=== PATIENT | male | born 1960 | race Caucasian/White ===

== ENCOUNTER 2022-09-15 08:35 | Emergency (ER) | payer BC ==
--- OUTSIDE RECORDS SUMMARY | 2022-09-15 08:39 | XMS REPORT | Continuity of Care Document ---
:1960 Author Organization [facility] t Address [address] [facility] [address] [place] [address] Care Team Providers Name Role Phone Taras Aguillon Attending Clinician Unavailable Dennys Rojas Attending Clinician Unavailable UNKNOWN Attending Clinician Unavailable Taras Aguillon Admitting Clinician Unavailable Dennys Rojas Admitting Clinician Unavailable KNOW, DOES_NOT Admitting Clinician Unavailable Payers Payer Name Policy Type Policy Number Effective Date Expiration Date S ource Problems This patient has no known problems. Allergies, Adverse Reactions, Alerts Allergy Allergy Status Severity Reaction(s) Onset Inactive Treating Comm ents Source Name Type Date Date Clinician No Known DA Active U 2019-0 [facility] 11[facility] [place] [facility] 00 are [facility] No Known DA Active U 0 [facility] 11-25 [place] [facility] 00:[facility]: [facility] 00 are [facility] No Known DA Active U [facility]- [place] Allergie 00:00: d [address] [facility] No Known DA Active U [facility] [place] Allergie 00:00: d [facility] Medications This patient has no known medications. Procedures This patient has no known procedures. Encounters Start End Encounter Admission Attending Care Care Encounter Source Date/Time Date/Time Type Type Clinicians Facility Department ID 2020-08-12 [id number] 11:09:[address] [facility] 2019-11-29 Inpatient Esses, [facility] DAYS [id number] [facility] 08:45:[address] [facility] 2021-02-11 2021-02-12 Inpatient MOLLY Menchaca TERRELL [id number] [facility] 07:30:00 13:23:00 Dennys pelaez [facility] 2020-08-12 2020-08-12 Outpatient Esses, [facility]AN[facility] REF [id number] [facility] 13:36:00 13:36:00 Taras 75 [facility] are [facility] 2019-11-26 2019-11-26 Outpatient UNKNOWN [facility] LABO [id number] [facility] 15:16:00 15:16:00 99 [facility] 2019-11-26 2019-11-26 Outpatient UNKNOWN [facility] LABO [id number] [facility] 15:16:00 15:16:00 99 [facility] 2019-11-26 2019-11-26 Outpatient Esses, HCANW REF [id number] [facility] 15:14:00 15:14:00 Taras 57 [facility] are [facility] Results Test Description Test Time Test Comments Results Result [facility] e Comments - FLUORO GUID CTRL 2021-02-12 [facility]:29[facility] 1960 Sex: M Name: WILLIAM CARR [facility] : 1960 Age/S: 61 / M [address] [address] Unit #: [id number] Loc: [place] [address] Phys: Dennys Rojas III, MD Acct: [id number] Dis Date: Status: ADM IN PHONE #: [phone] Exam Date: 02/11/2021 1438 FAX #: Reason: ANKLR ORIF EXAMS: CPT: [id number] FLUORO GUID CTRL ACC DEV 82087 Fluoro Time: DAP (Gy m2): Air Kerma (mGy): EXAM: - FLUORO GUID CTRL ACC DEV HISTORY: Ankle ORIF Location code:C3 COMPARISON: None available time of interpretation. FINDINGS: Intraoperative fluoroscopy was provided for tibiotalar arthroplasty. Radiologist was not present for the procedure. 29 fluoroscopy images were obtained. Please see surgical report. IMPRESSION: 1. As above. Fluoroscopy time: 109 seconds Cumulative dose: 5.39 mGy at 0729 Reported and signed by: Bandar Mcintyre MD CC: Dennys Rojas III, MD PAGE 1 Signed Report Name: WILLIAM CARR [facility] : 1960 Age/S: 61 / M [address] [facility] [place] Unit #: [id number] Loc: [place] [address] Phys: Dennys Rojas III, MD Acct: [id number] Dis Date: Status: ADM IN PHONE #: [phone] Exam Date: 02/11/2021 1438 FAX #: Reason: ANKLR ORIF EXAMS: CPT: [id number] FLUORO GUID CTRL ACC DEV 53232 Fluoro Time: DAP (Gy m2): Air Kerma (mGy): <Continued> Technologist: Neva Mancini RT(R)(CT) Trnscb Date/Time: 02/12/2021 (0729) [email or web address] Orig Print D/T: S: 02/12/2021 (0733) PAGE 2 Signed Report CBC W/AUTO DIFF 2021-02-12 05:42:00 Test Item Value Reference Range Interpretation Comme nts WHITE BLOOD CELL (test code = WBC) 7.5 K/mm3 3.5-11.0 N RED BLOOD CELL (test code = RBC) 3.43 M/mm3 4.70-6.10 L HEMOGLOBIN (test code = HGB) 10.7 G/DL 12.3-15.9 L HEMATOCRIT (test code = HCT) 34.0 % 35.8-46.7 L MEAN CELL VOLUME (test code = MCV) 99.1 Fl 86.3-98.9 H MEAN CELL HGB (test code = MCH) 31.2 pg 28.9-34.4 N MEAN CELL HGB CONCETRATION (test code = MCHC) 31.5 G/DL 32.1-34. 5 L RED CELL DISTRIBUTION WIDTH (test code = RDW) 17.1 SD 11.5-14. 5 H PLATELET COUNT (test code = PLT) 306 K/mm3 150-450 N MEAN PLATELET VOLUME (test code = MPV) 9.60 fL 7.0-9.6 N NEUTROPHIL % (test code = NT%) 65.7 % 40-76 N IMMATURE GRANULOCYTE % (test code = IG%) 0.1 % 0.0-5.0 N LYMPHOCYTE % (test code = LY%) 17.7 % 20.5-51.1 L MONOCYTE % (test code = MO%) 16.3 % 1.7-9.3 H EOSINOPHIL % (test code = EO%) 0.1 % 0.0-6.0 N BASOPHIL % (test code = BA%) 0.1 % 0.0-2.0 N NUCLEATED RBC % (test code = NRBC%) 0.0 /100WBC% 0.0-1.0 N NEUTROPHIL # (test code = NT#) 4.9 K/mm3 1.8-7.6 N IMMATURE GRANULOCYTE # (test code = IG#) 0.01 x10 3/uL 0.00-0.03 N LYMPHOCYTE # (test code = LY#) 1.3 K/mm3 0.6-3.0 N MONOCYTE # (test code = MO#) 1.2 K/mm3 0.2-1.5 N EOSINOPHIL # (test code = EO#) 0.0 K/mm3 0.0-0.4 N BASOPHIL # (test code = BA#) 0.0 K/mm3 0.0-0.2 N NUCLEATED RBC # (test code = NRBC#) 0.0 K/mm3 0.00-0.01 N MANUAL DIFF REQUIRED (test code = MDIFF) NO DIFF/SCN CRITERIA BASIC METABOLIC [id number] 11:49:00 Test Item Value Reference Range Interpretation Comments SODIUM (test code = NA) 135 mmol/L 134-147 N POTASSIUM (test code = 4.1 mmol/L 3.4-5.0 N K) CHLORIDE (test code = 103 mmol/L 100-108 N CL) CARBON DIOXIDE (test 28 mmol/L 21-32 N code = CO2) ANION GAP (test code = 4.0 GAP calc 4.0-15.0 N GAP) GLUCOSE (test code = 122 MG/DL 70-110 H GLU) BLOOD UREA NITROGEN 12 MG/DL 7-18 N (test code = BUN) GLOMERULAR FILTRATION >=60 max estimate >60 RATE (test code = GFR) estGFR CREATININE (test code = 0.8 MG/DL 0.8-1.3 N CREAT) CALCIUM (test code = CA) 9.7 MG/DL 8.5-10.1 N COVID 19 INHOUSE [id number] 11:47:00 Test Item Value Reference Range Interpretation Comments COVID 19 INHOUSE AG NEGATIVE Negative Per manu facturer, (test code = negative result s should [id number]) be treated aspr esumptive and, if inconsi stent with clinical signs andsymptoms or necessary for patient man agement, should betested with an alternative mol ecular assay. Negative resultsdo not preclude SA RS-CoV-2 infection and s hould not be usedas the s ole basis for patient man agement decisions. Nega tive results should be considered in t he context of apatient's r ecent exposures, hist ory, presence of cli nicalsigns and symptoms co nsistent with COVID-19. CBC W/AUTO [id number] 11:32:00 Test Item Value Reference Range Interpretation Comments WHITE BLOOD CELL (test code = 5.4 K/mm3 3.5-11.0 N WBC) RED BLOOD CELL (test code = 3.98 M/mm3 4.70-6.10 L RBC) HEMOGLOBIN (test code = HGB) 12.7 G/DL 12.3-15.9 N HEMATOCRIT (test code = HCT) 39.2 % 35.8-46.7 N MEAN CELL VOLUME (test code = 98.5 Fl 86.3-98.9 N MCV) MEAN CELL HGB (test code = MCH) 31.9 pg 28.9-34.4 N MEAN CELL HGB CONCETRATION 32.4 G/DL 32.1-34.5 N (test code = MCHC) RED CELL DISTRIBUTION WIDTH 16.6 SD 11.5-14.5 H (test code = RDW) PLATELET COUNT (test code = 349 K/mm3 150-450 N PLT) MEAN PLATELET VOLUME (test code 9.60 fL 7.0-9.6 N = MPV) NEUTROPHIL % (test code = NT%) 64.4 % 40-76 N IMMATURE GRANULOCYTE % (test 0.2 % 0.0-5.0 N code = IG%) LYMPHOCYTE % (test code = LY%) 19.7 % 20.5-51.1 L MONOCYTE % (test code = MO%) 12.5 % 1.7-9.3 H EOSINOPHIL % (test code = EO%) 2.6 % 0.0-6.0 N BASOPHIL % (test code = BA%) 0.6 % 0.0-2.0 N NUCLEATED RBC % (test code = 0.0 /100WBC% 0.0-1.0 N NRBC%) NEUTROPHIL # (test code = NT#) 3.5 K/mm3 1.8-7.6 N IMMATURE GRANULOCYTE # (test 0.01 x10 3/uL 0.00-0.03 N code = IG#) LYMPHOCYTE # (test code = LY#) 1.1 K/mm3 0.6-3.0 N MONOCYTE # (test code = MO#) 0.7 K/mm3 0.2-1.5 N EOSINOPHIL # (test code = EO#) 0.1 K/mm3 0.0-0.4 N BASOPHIL # (test code = BA#) 0.0 K/mm3 0.0-0.2 N NUCLEATED RBC # (test code = 0.0 K/mm3 0.00-0.01 N NRBC#) MANUAL DIFF REQUIRED (test code NO DIFF/SCN CRITERIA = MDIFF) PROTHROMBIN [id number] 11:29:00 Test Item Value Reference Range Interpretation Comments PT PATIENT (test 10.8 SECONDS 9.3-12.9 N code = PTP) INTERNATIONAL NORMAL 0.96 INR Unit 0.8-1.2 N TARGE T INR BY RATIO (test code = INDICATIO N Indication INR) INR1. Prophylax is of venous thrombos is 2.0 - 3.0 (orthoped ic surgery), Proph ylaxis of venous throm bosis (other than hig h-risk surgery), Treat ment of Deep Vein Thrombosis/Pulm onary Embolism, Preve ntion of systemic emb olism - Tissue heart va lves, Acute Myocardia l Infarction (to prevent systemic emboli sm), Valvular heart disease, Acute Myocardial Infa rction (to prevent sys temic embolism), Valv ular heart disease, Atrial Fibrillation, Bileaflet mecha nical valve in aortic position.2. Mec hanical prosthetic valv es (high risk), 2. 5 - 3.5 Presence of Lup us Anticoagulant o r Antiphospholipi d Antibodies, Pre vention of systemic emb olism - Acute Myocardia l Infarction (to prevent recurrent infar ct). THROMBOPLASTIN TIME [id number] 11:29:00 Test Item Value Reference Range Interpretation Comments THROMBOPLASTIN TIME PARTIAL 32.4 SECONDS 26-35 N (test code = PTT) - XR CHEST 1 [id number] 11:03:00 [facility] 1960 Sex: M Name:WILLIAM CARR [facility] : 1960 Age/S: 61 / M [address] [address] Unit #: [id number] Loc: [place] [address] Phys: Mellissa Rose MD Acct: [id number] Dis Date: Status: PRE IN PHONE #:[phone] Exam Date: 02/10/2021 1102 FAX #: Reason: PRE-OP EXAMS: CPT: [id number] XR CHEST 1 V 81282 Fluoro Time: DAP (Gy m2): Air Kerma (mGy): EXAM: - XR CHEST 1 V INDICATION: PRE-OP T18 TECHNIQUE:Frontal view of the chest. FINDINGS: Lungs appear clear. Cardiomediastinal silhouette and osseous structures appear unremarkable. No pleural effusion appreciated. IMPRESSION: Negative chest radiograph. at 1103 Reported and signed by: Girish Osullivan M.D. CC: Dennys Rojas III, MD; Mellissa Rose MD PAGE 1 Signed Report Name: WILLIAM CARR [facility] : 1960 Age/S: 61 / M [address] [address] [place] Unit #: [id number] Loc: [place] [address] Phys: Mellissa Rose MD Acct: [id number] Dis Date: Status: PRE IN PHONE #: [phone] Exam Date: 02/10/2021 1102 FAX #: Reason: PRE-OP EXAMS: CPT: [id number] XR CHEST 1 V 33553 Fluoro Time: DAP (Gy m2): Air Kerma (mGy): <Continued> Technologist: Bre Harding RT(R) Trnscb Date/Time: 02/10/2021 (1103) [email or web address] Orig Print D/T: S: 02/10/2021 (1906) PAGE 2 Signed Report- XR FLUOROSCOPY 0-60 [id number] 11:27:00 [facility] 1960 Sex: MPatient Name: WILLIAM CARR Unit No: [id number] EXAMS: CPT CODE: [id number] XR FLUOROSCOPY 0- 60 MIN 31061 FLUOROSCOPY LOCATION: A1 HISTORY: Lumbar decompression. Findings: Fluoroscopic imaging was provided during lumbar spine surgery. I was not present for the exam. Total Fluoroscopy time was 3 seconds and a radiation dose of 4 mGy was administered. FINDINGS: Submitted images show posterior localizing devices over the lower lumbar spine. IMPRESSION: Fluoroscopic imaging during lumbar spine surgery. at 1127 Reported and signed by: Bebeto Mcgowan Jr, MD CC: Taras Aguillon MD Technologist: NELSY GUZMÁN RT(R) Fluoro Time: DAP (Gy m2): Air Kerma (mGy): Trscr Dt/Tm: 08/14/2020 (1127) by:Tanya Printed Date/Time: 08/14/2020 (1130) Name: WILLIAM CARR [facility] Phys: Taras Manuel MD [address] : 1960 Age: 60 Sex: [place] [address] Loc: P.SRG Exam Date: 08/14/2020 Status: REG [facility] PH: FAX: PAGE 1 Signed ReportNovel Coronavirus 2019 [id number] 18:08:00 Test Item Value Reference Range Interpretation Comments Novel Coronavirus Not Detected Not Detected Testing wa s performed 2019 Inhouse (test using the Aptima code = COVNONPUI) SARS-CoV-2 assay.This nucleic acid amplification t est was developed and itsperformance characteristics determined by [facility]. Nucleic acid amplification t ests include RT-PCR and TMA. This test has n ot been FDA cleared ora pproved. This test has b een authorized by F DA under anEmergency Use Authorization ( EUA). This test is onlyauthorized for the duration of nguyen e the declaration thatcircumstanc es exist justifying the authorization o f theemergency us e of in vitro diagnosti c tests for detection [id number] vi duong and/or diagnosi s of COVID-19 infect ionunder section 564(b)( 1) of the Act, 21 U.S .C. 360bbb-3(b)(1), unless the authorizati on is terminated or revokedsooner.W hen diagnostic test ing is negative, the possibility of afalse negative result should be considered i n the contextof a pat ient's recent exposure s and the presence of clinical signs and sympt oms consistent with COVID-19. Anind ividual without symptom s of COVID-19 and wh o is notshedding WADE S-CoV-2 virus would exp ect to have a negative (not detected) resul t in this assay. COMPREHENSIVE METABOLIC [id number] 13:08:00 Test Item Value Reference Range Interpretation Comments SODIUM (test code = 134 mmol/L 136-145 L Please n ote: New NA) Reference Range Jun 2020 POTASSIUM (test 4.8 mmol/L 3.5-5.1 N code = K) CHLORIDE (test code 100 mmol/L 98-107 N Please n ote: New = CL) Reference Range Jun 2020 CARBON DIOXIDE 29 mmol/L 20-31 N Please note: New (test code = CO2) Reference Range Jun 2020 GLUCOSE (test code 85 mg/dL 74-106 N Please no te: New = GLU) Reference Range Jun 2020 BLOOD UREA NITROGEN 12 mg/dL 9-23 N Please n ote: New (test code = BUN) Reference Range Jun 2020 GLOMERULAR >=60 max >60 The estimated FILTRATION RATE estimate glomerular (test code = GFR) filtration rate is computed usingpatient ra ce, age (>18), sex, and serum creatinin e. If anyof the ne eded data elements a re missing the Laboratory kenia ot compute an estimation of t he glomerular filtration rate . CREATININE (test 1.10 mg/dL 0.70-1.30 N Please note : New code = CREAT) Reference Rang e Jun 2020 TOTAL PROTEIN (test 6.9 g/dL 5.7-8.2 N Please n ote: New code = PROT) Reference Range Jun 2020 ALBUMIN (test code 4.8 g/dL 3.2-4.8 N Please no te: New = ALB) Reference Range Jun 2020 CALCIUM (test code 9.4 mg/dL 8.7-10.4 N Please no te: New = CA) Reference Range Jun 2020 BILIRUBIN TOTAL 0.4 mg/dL 0.3-1.2 N Please note: New (test code = BILT) Reference Range Jun 2020 SGOT/AST (test code 42 U/L <34 H Please n ote: New = AST) Reference Range Jun 2020 SGPT/ALT (test code 43 U/L 10-49 N Please n ote: New = ALT) Reference Range Jun 2020 ALKALINE 102 U/L 46-116 N Please note: Ne w PHOSPHATASE (test Reference Range Feb code = ALKP) 2020 PROTHROMBIN [id number] 12:55:00 Test Item Value Reference Range Interpretation Comments PROTHROMBIN TIME 10.9 SECONDS 10.3-12.9 N PATIENT (test code = PTP) INTERNATIONAL 0.97 INR UNIT 0.9-1.11 N The INR is us eful only NORMAL RATIO (test for monit oring code = INR) anticoagulant therapy.It may be unreliable in t he initial phase o f antigoagulation and in unstable patien ts. Indication for Anticoagulation Recommended INR 1. Prevention of v enous thomboembolism 2.0-3.0in high- risk patients; treat ment of venousthrombosi s and pulmonary embol ism aftera course o f heparin; preven tion of systemicembolis m in a variety of cond itions, including atria l fibrillation an d prothetic tissu e heart valves, 2. Pros thetic mechanical hear t valves; 2.5-3.5recurren t systemic emboli sm. THROMBOPLASTIN TIME [id number] 12:55:00 Test Item Value Reference Range Interpretation Comments THROMBOPLASTIN TIME 27.4 SECONDS 23.8-34.8 N INTERPRE TATIVE PARTIAL (test code = DATA: erapeutic PTT) range: Unfractionated heparin:55 - 80 seconds Argatroban:1.5 to 3 times the basel ine PTT COMPREHENSIVE METABOLIC [id number] 12:54:00 Test Item Value Reference Range Interpretation Comments SODIUM (test code = 134 mmol/L 136-145 L Please n ote: New NA) Reference Range Jun 2020 POTASSIUM (test 4.8 mmol/L 3.5-5.1 N code = K) CHLORIDE (test code 100 mmol/L 98-107 N Please n ote: New = CL) Reference Range Jun 2020 CARBON DIOXIDE 29 mmol/L 20-31 N Please note: New (test code = CO2) Reference Range Jun 2020 GLUCOSE (test code 85 mg/dL 74-106 N Please no te: New = GLU) Reference Range Jun 2020 BLOOD UREA NITROGEN 12 mg/dL 9-23 N Please n ote: New (test code = BUN) Reference Range Jun 2020 GLOMERULAR >=60 max >60 The estimated FILTRATION RATE estimate glomerular (test code = GFR) filtration rate is computed usingpatient ra ce, age (>18), sex, and serum creatinin e. If anyof the ne eded data elements a re missing the Laboratory kenia ot compute an estimation of t he glomerular filtration rate . CREATININE (test 1.10 mg/dL 0.70-1.30 N Please note : New code = CREAT) Reference Rang e Jun 2020 TOTAL PROTEIN (test 6.9 g/dL 5.7-8.2 N Please n ote: New code = PROT) Reference Range Jun 2020 ALBUMIN (test code 4.8 g/dL 3.2-4.8 N Please no te: New = ALB) Reference Range Jun 2020 CALCIUM (test code mg/dL 8.7-10.4 = CA) BILIRUBIN TOTAL 0.4 mg/dL 0.3-1.2 N Please note: New (test code = BILT) Reference Range Jun 2020 SGOT/AST (test code 42 U/L <34 H Please n ote: New = AST) Reference Range Jun 2020 SGPT/ALT (test code 43 U/L 10-49 N Please n ote: New = ALT) Reference Range Jun 2020 ALKALINE 102 U/L 46-116 N Please note: Ne w PHOSPHATASE (test Reference Range Feb code = ALKP) 2020 - XR CHEST 1 [id number] 12:39:00 [facility] : 1960 Sex: MPatient Name: WILLIAM CARR Unit No: [id number] EXAMS: CPT CODE: [id number] XR CHEST 1 V 43052 Clinical Information: Preoperative evaluation. Dictation Location: A 1 COMPARISON: The 2019. FINDINGS: Portable frontal view of the chest taken at 6 hours shows monitoring electrodes overlying the chest wall. The heart size and pulmonary vessels are unremarkable. The lungs appear clear of active infiltrate or effusion. The bones appear intact as demonstrated. IMPRESSION: No active disease or intervalchange. at 1239 Reported and signed by: SHAUN PEARSON M.D. CC: Taras Aguillon MD Technologist: Joe Banuelos Fluoro Time: DAP (Gy m2): Air Kerma (mGy): Trscr Dt/Tm: 08/12/2020 (1239) by:Lurdes Printed Date/Time: 08/12/2020 (1242) Name: WILLIAM CARR [facility] Phys: Taras Manuel MD [address] : 1960 Age: 60 Sex: [place] [address] Loc: P.SRG Exam Date: 08/12/2020tatus: PRE SDC PH: FAX: PAGE 1 Signed ReportCBC W/AUTO [id number] 12:37:00 Test Item Value Reference Range Interpretation Comments WHITE BLOOD CELL (test code = 5.0 x10 3/uL 4.8-10.8 N WBC) RED BLOOD CELL (test code = 3.92 x10 6/uL 4.70-6.10 L RBC) HEMOGLOBIN (test code = HGB) 12.0 g/dL 14.0-18.0 L HEMATOCRIT (test code = HCT) 36.3 % 42.0-52.0 L MEAN CELL VOLUME (test code = 92.6 fL 80.0-94.0 N MCV) MEAN CELL HGB (test code = MCH) 30.6 pg 27-31 N MEAN CELL HGB CONCENTRATION 33.1 G/DL 33-36.5 N (test code = MCHC) RED CELL DISTRIBUTION WIDTH 15.8 % 12.9-16.9 N (test code = RDW) PLATELET COUNT (test code = 402 x10 3/uL 150-440 N PLT) MEAN PLATELET VOLUME (test code 9.9 fL 8.9-12.4 N = MPV) NEUTROPHIL % (test code = NT%) 58.6 % 42.2-75.2 N LYMPHOCYTE % (test code = LY%) 21.0 % 20.5-51.1 N MONOCYTE % (test code = MO%) 14.8 % 1.7-9.3 H EOSINOPHIL % (test code = EO%) 4.2 % 0.0-7.0 N BASOPHIL % (test code = BA%) 1.0 % 0-2.5 N NEUTROPHIL # (test code = NT#) 2.93 x10 3/uL 1.80-7.70 N LYMPHOCYTE # (test code = LY#) 1.05 x10 3/uL 1.00-4.80 N MONOCYTE # (test code = MO#) 0.74 x10 3/uL 0.00-0.80 N EOSINOPHIL # (test code = EO#) 0.21 x10 3/uL 0.00-0.45 N BASOPHIL # (test code = BA#) 0.05 x10 3/uL 0.0-0.20 N - XR FLUOROSCOPY 0-60 [id number] 14:18:00Patient Name: WILLIAM CARR Unit No: [id number] EXAMS: CPT CODE: [id number] XR FLUOROSCOPY 0-60 [id number] Fluoroscopy 4 views intraoperative 11/29/2019 2:18 PM CLINICAL HISTORY: Instrument localizationCOMPARISON: None available LOCATION: W1 IMPRESSION: Please correlate imaging report findings with the procedure note prepared by Dr. Aguillon, as an intra-procedure imaging consultation was not requested. Reported fluoroscopy time: 1 second. at 1418 Reported and signed by: SELMA HAGEN M.D. CC: Taras Aguillon MD Technologist: NELSY GUZMÁN RT(R) Fluoro Time: DAP (Gy m2): Air Kerma (mGy): Trscr Dt/Tm: 11/29/2019 (1418) by:[email or web address] Printed Date/Time: 11/29/2019 (5420) Name: WILLIAM CARR ALAN [facility] Phys: Taras Manuel MD [address] : 1960 Age: 59 Sex: [place] [address] Loc: P.SRG Exam Date: 11/29/2019 Status: REG SD PH: FAX: PAGE 1 Signed ReportNovel Coronavirus 2019 [id number] 08:55:00 Test Item Value Reference Range Interpretation Comments Novel Coronavirus 2019 Inhouse (test Negative Negative code = COVNONPUI) Testing Criteria: Preprocedure ScreeningNovel Coronavirus 2019 [id number] 08:55:00 Test Item Value Reference Range Interpretation Comments Novel Coronavirus 2019 Inhouse (test Negative Negative code = COVNONPUI) Testing Criteria: Preprocedure ScreeningCOMPREHENSIVE METABOLIC [id number] 15:41:00 Test Item Value Reference Range Interpretation Comments SODIUM (test code = 137 MMOL/L 136-143 N NA) POTASSIUM (test 4.2 MMOL/L 3.5-5.1 N code = K) CHLORIDE (test code 99 MMOL/L 98-107 N = CL) CARBON DIOXIDE 27 mmol/L 24-31 N (test code = CO2) GLUCOSE (test code 98 mg/dL 70-104 N = GLU) BLOOD UREA NITROGEN 11.7 MG/DL 7.0-21.0 N (test code = BUN) GLOMERULAR >=60 max >60 The estimated FILTRATION RATE estimate glomerular (test code = GFR) filtration rate is computed usingpatient ra ce, age (>18), sex, and serum creatinin e. If anyof the ne eded data elements a re missing the Laboratory kenia ot compute an estimation of t he glomerular filtration rate . CREATININE (test 0.8 mg/dL 0.8-1.5 N code = CREAT) TOTAL PROTEIN (test 7.0 g/dL 6.3-8.3 N code = PROT) ALBUMIN (test code 4.4 G/DL 3.5-5.0 N = ALB) CALCIUM (test code 9.7 mg/dL 8.8-10.2 N = CA) BILIRUBIN TOTAL 0.4 mg/dL 0.2-1.0 N (test code = BILT) SGOT/AST (test code 42 IU/L 10-34 H = AST) SGPT/ALT (test code 34 U/L 10-44 N = ALT) ALKALINE 87 U/L 45-120 N PHOSPHATASE (test code = ALKP) - XR CHEST 1 [id number] 15:34:00Patient Name: WILLIAM CARR Unit No: [id number] EXAMS: CPT CODE: [id number] XR CHEST 1 V 12428 Chestone view AP 11/26/2019 3:34 PM CLINICAL HISTORY: Preop COMPARISON: None available LOCATION: W1 FINDINGS: The lungs are clear. Cardiomediastinal contours are within normal limits. The central pulmonary vasculature is not engorged. IMPRESSION: Unremarkable frontal chest radiograph. at 1534 Reported and signed by: SELMA HAGEN M.D. CC: Taras Aguillon MD Technologist: Joe Gray Time: DAP (Gy m2): Air Kerma (mGy): Trscr Dt/Tm: 11/26/2019 (1534) by:[email or web address] Printed Date/Time: 11/26/2019 (1538) Name: WILLIAM CARR [facility] Phys: Taras Manuel MD [address] : 1960 Age: 59 Sex: [place] [address] Loc: P.SRG Exam Date: 11/26/2019 Status: PRE SDC PH: FAX:PAGE 1 Signed ReportPROTHROMBIN [id number] 15:24:00 Test Item Value Reference Range Interpretation Comments PROTHROMBIN TIME 12.2 SECONDS 10.3-12.9 N PATIENT (test code = PTP) INTERNATIONAL 1.08 INR UNIT 0.9-1.11 N The INR is us eful only NORMAL RATIO (test for monit oring code = INR) anticoagulant therapy.It may be unreliable in t he initial phase o f antigoagulation and in unstable patien ts. Indication for Anticoagulation Recommended INR 1. Prevention of v enous thomboembolism 2.0-3.0in high- risk patients; treat ment of venousthrombosi s and pulmonary embol ism aftera course o f heparin; preven tion of systemicembolis m in a variety of cond itions, including atria l fibrillation an d prothetic tissu e heart valves, 2. Pros thetic mechanical hear t valves; 2.5-3.5recurren t systemic emboli sm. THROMBOPLASTIN TIME [id number] 15:24:00 Test Item Value Reference Range Interpretation Comments THROMBOPLASTIN TIME 25.9 SECONDS 23.8-34.8 N INTERPRE TATIVE PARTIAL (test code = DATA: erapeut PTT) range: Unfractionated heparin:55 - 80 seconds Argatroban:1.5 to 3 times the basel ine PTT CBC W/AUTO [id number] 15:18:00 Test Item Value Reference Range Interpretation Comments WHITE BLOOD CELL (test code = 5.0 x10 3/uL 4.8-10.8 N WBC) RED BLOOD CELL (test code = 3.98 x10 6/uL 4.70-6.10 L RBC) HEMOGLOBIN (test code = HGB) 12.3 g/dL 14.5-20 L HEMATOCRIT (test code = HCT) 36.7 % 42.0-52.0 L MEAN CELL VOLUME (test code = 92.2 fL 80.0-94.0 N MCV) MEAN CELL HGB (test code = MCH) 30.9 pg 27-31 N MEAN CELL HGB CONCENTRATION 33.5 G/DL 33-36.5 N (test code = MCHC) RED CELL DISTRIBUTION WIDTH 16.5 % 12.9-16.9 N (test code = RDW) PLATELET COUNT (test code = 286 150-440 N PLT) MEAN PLATELET VOLUME (test code 10.0 fL 8.9-12.4 N = MPV) NEUTROPHIL % (test code = NT%) 58.4 % 42.2-75.2 N LYMPHOCYTE % (test code = LY%) 24.4 % 20.5-51.1 N MONOCYTE % (test code = MO%) 13.4 % 1.7-9.3 H EOSINOPHIL % (test code = EO%) 2.8 % 0.0-7.0 N BASOPHIL % (test code = BA%) 0.8 % 0-2.5 N NEUTROPHIL # (test code = NT#) 2.93 x10 3/uL 1.80-7.70 N LYMPHOCYTE # (test code = LY#) 1.22 x10 3/uL 1.00-4.80 N MONOCYTE # (test code = MO#) 0.67 x10 3/uL 0.00-0.80 N EOSINOPHIL # (test code = EO#) 0.14 x10 3/uL 0.00-0.45 N BASOPHIL # (test code = BA#) 0.04 x10 3/uL 0.0-0.20 N
[2022-09-15 09:25] LABS: Hematocrit 31.4 % (39.6-49.0); Lymphocytes % 12.6 % (15.3-44.8); MCV 88.8 fL (80-100); RBC Red Blood Cell Count 3.54 M/uL (4.33-5.43)
[2022-09-15] MEDS ORDERED: NA CHLORIDE 0.9% 100 ML ONE (09:26)
[2022-09-15] MEDS ORDERED: PIPERACIL/TAZO 3.375 GM VIAL IV ONE (09:26)
[2022-09-15 09:30] LABS: Protime INR 0.93
[2022-09-15 09:41] LABS: Albumin 3.3 g/dL (3.4-5.0); Bilirubin Total 0.3 mg/dL (0.2-1.0); Potassium 4.1 mEq/L (3.5-5.1)
[2022-09-15] MEDS ORDERED: LIDOCAINE 1% MPF 5 ML VIAL ONE (09:57)
--- NOTE | 2022-09-15 10:55 | EDPHYS ---
Physician Documentation [facility] Name: Mauro Mccormack Age: 62 yrs Sex: Male : 1960 Arrival Date: 09/15/2022 Time: 08:35 Bed 6 Private MD: ED Physician Terry Krishnan HPI: 09/15 09:59 This 62 yrs old Male presents to ER via Ambulatory with complaints of Wound Infection. kb 09:59 The patient presents with an abscess of the right forearm, The patient presents with kb cellulitis of the right forearm. Description: draining, erythematous, swollen, warm. Onset: The symptoms/episode began/occurred 1 week(s) ago. Possible cause(s): unknown. Associated signs and symptoms: Pertinent positives: drainage, erythema, swelling, Pertinent negatives: fever. Modifying factors: the symptoms are alleviated by nothing, the symptoms are aggravated by nothing. Severity of symptoms: At their worst the symptoms were moderate, in the emergency department the symptoms are unchanged. The patient has not experienced similar symptoms in the past. The patient has been recently seen by a physician: the ER physician, out of Town, yesterday, with similar presenting complaints, given a dose of Zosyn and told he needed to be admitted for IV antibiotics. Historical: - Allergies: 08:51 No Known Allergies; iw - Home Meds: 08:52 Lisinopril Oral [Active]; Allopurinol Oral [Active]; Hydrocodone-Acetaminophen Oral iw [Active]; - PMHx: 08:51 Hypertensive disorder; back pain; Gout; neuropathy; iw - Immunization history:: Client reports receiving the 2nd dose of the Covid vaccine. - Social history:: Smoking status: Patient reports use of chewing tobacco. ROS: 09:58 Constitutional: Negative for fever, chills, and weight loss. kb 09:58 Skin: Positive for abscess, cellulitis, of the right forearm. 09:58 All other systems are negative. Exam: 09:58 Constitutional: This is a well developed, well nourished patient who is awake, alert, kb and in no acute distress. Head/Face: Normocephalic, atraumatic. ENT: Moist Mucous membranes Cardiovascular: Regular rate and rhythm with a normal S1 and S2. No gallops, murmurs, or rubs. No pulse deficits. Respiratory: Respirations even and unlabored. No increased work of breathing. Talking in full sentences MS/ Extremity: Pulses equal, no cyanosis. Neurovascular intact. Full, normal range of motion. Neuro: Awake and alert, GCS 15, oriented to person, place, time, and situation. Moves all extremities. Normal gait. 09:58 Skin: abscess, that is moderate sized, of the right forearm, with drainage, with fluctuance, with induration, with surrounding cellulitis, that is moderate, x2. 10:20 ECG was reviewed by the Attending Physician. Vital Signs: 08:49 BP 134 / 82; Pulse 95; Resp 18; Temp 97.6; Pulse Ox 100% on R/A; Weight 117.93 kg; iw Height 6 ft. 5 in. ; 11:00 BP 124 / 71; Pulse 87; Resp 18; Pulse Ox 99% ; ko1 08:49 Body Mass Index 30.83 (117.93 kg, 195.58 cm) iw Procedures: 10:53 I \T\ D: Incision and drainage was performed for an abscess of the right right forearm kb Prepped with Betadine, Anesthetized with 2 ml's 1% Lidocaine. Incised with #11 blade. Drained moderate amount purulent fluid. Packed with iodoform gauze, Dressing: sterile 4x4 gauze, the patient tolerated the procedure well. 10:54 I \T\ D: Incision and drainage was performed for an abscess of the right right forearm kb Prepped with Betadine, Anesthetized with 1 ml's 1% Lidocaine. Incised with #11 blade. Drained small amount serosanguinous fluid. Packed with iodoform gauze, Dressing: sterile 4x4 gauze, the patient tolerated the procedure well. MDM: 08:43 Patient medically screened. kb 09:58 Data reviewed: vital signs, nurses notes. kb 10:01 Differential diagnosis: abscess, allergic reaction, cellulitis, insect bite. kb 10:51 Consideration of Admission/Observation Escalation of care including kb admission/observation considered. admission considered, but pt prefers to take outpatient antibiotics and go home. . Counseling: I had a detailed discussion with the patient and/or guardian regarding: the historical points, exam findings, and any diagnostic results supporting the discharge/admit diagnosis, lab results, the need for outpatient follow up, a family practitioner, a general surgeon, to return to the emergency department if symptoms worsen or persist or if there are any questions or concerns that arise at home. ED course: procalcitonin and WBC wnl, lactate negative. Pt nontoxic in appearance, afebrile. Discussed outpatient po antibiotics vs inpatient IV antibiotics. Pt prefers to try outpatient treatment and will return for worsening symptoms. Strict return precautions given. Verbal understanding received. . 09/15 08:54 Order name: Blood Culture Adult (2) kb 09/15 08:54 Order name: CBC with Diff; Complete Time: 09:33 kb 09/15 08:54 Order name: CMP; Complete Time: 09:42 kb 09/15 08:54 Order name: Lactate w/ 2H reflex if indic.; Complete Time: 09:42 kb 09/15 08:54 Order name: Protime (+inr); Complete Time: 09:33 kb 09/15 08:54 Order name: Ptt, Activated; Complete Time: 09:33 kb 09/15 09:04 Order name: Procalcitonin; Complete Time: 10:07 kb 09/15 09:49 Order name: Glucose, Ancillary Testing; Complete Time: 09:54 EDMS 09/15 08:54 Order name: EKG; Complete Time: 08:55 kb 09/15 08:54 Order name: Accucheck; Complete Time: 10:09 kb 09/15 08:54 Order name: Cardiac monitoring; Complete Time: 09:05 kb 09/15 08:54 Order name: EKG - Nurse/Tech; Complete Time: 09:18 kb 09/15 08:54 Order name: IV Saline Lock - Large Bore; Complete Time: 09:05 kb 09/15 08:54 Order name: Labs collected and sent; Complete Time: 09:18 kb 09/15 08:54 Order name: O2 Per Protocol; Complete Time: 09:03 kb 09/15 08:54 Order name: O2 Sat Monitoring; Complete Time: 09:03 kb 09/15 08:54 Order name: Vital Signs; Complete Time: 09:05 kb 09/15 09:42 Order name: I\T\D Setup; Complete Time: 09:54 kb EC:20 Rate is 93 beats/min. Rhythm is regular. QRS [place] is Normal. [place] interval is normal at kb 136 msec. QRS interval is normal at 102 msec. QT interval is normal at 445 msec. Administered Medications: 10:08 Drug: Piperacillin-Tazobactam IVPB 3.375 grams Route: IVPB; Infused Over: 60 mins; ld1 Site: left upper arm; 10:56 Drug: Lidocaine Infiltration (1 %) 1 vials Volume: 5 ml; Route: Infiltration; ko1 Disposition: 12:49 Co-signature as Attending Physician, Terry Krishnan MD I reviewed the patient's care rn provided by the Advanced Practice Provider and agree with the diagnosis and treatment plan. Disposition Summary: 09/15/22 10:55 Discharge Ordered Location: Home kb Condition: Stable kb Diagnosis - Cutaneous abscess of right upper limb kb - Cellulitis of right upper limb kb Followup: kb - With: Emergency Department - When: As needed - Reason: Worsening of condition Followup: kb - With: Private Physician - When: 2 - 3 days - Reason: Recheck today's complaints, Continuance of care, Re-evaluation by your physician Discharge Instructions: - Discharge Summary Sheet kb - Skin Abscess, [id number] kb - Cellulitis, Adult, [id number] kb - Incision and Drainage, Care After kb Forms: - Medication Reconciliation Form kb - Thank You Letter kb - Antibiotic Education kb - Prescription Opioid Use kb Prescriptions: - Cephalexin 500 mg Oral Capsule - take 1 capsule by ORAL route every 8 hours for 10 days; 30 capsule; Refills: 0, kb Product Selection Permitted - Bactrim DS 800-160 mg Oral Tablet - take 1 tablet by ORAL route every 12 hours for 10 days; 20 tablet; Refills: 0, kb Product Selection Permitted Signatures: Dispatcher [employer] Bre Thurston, CHEMICAL MAKER-C CHEMICAL MAKER-Elysia Padilla, RN Terry Stock MD MD rn Sims, Lauren, RN RN ld1 Rosemary Tapia RN RN ko1
--- NOTE | 2022-09-15 10:55 | ER ---
Nurse's Notes [facility] Name: Mauro Mccormack Age: 62 yrs Sex: Male : 1960 Arrival Date: 09/15/2022 Time: 08:35 Bed 6 Private MD: Diagnosis: Cutaneous abscess of right upper limb;Cellulitis of right upper limb Presentation: 09/15 08:49 Chief complaint: Patient states: infection on RFA since last week, was seen at [facility] ER last night was told he needed to be admitted , they gave him a dose of Zosyn last night. Coronavirus screen: At this time, the client does not indicate any symptoms associated with coronavirus-19. Ebola Screen: Patient negative for fever greater than or equal to 101.5 degrees Fahrenheit, and additional compatible Ebola Virus Disease symptoms Patient denies exposure to infectious person. Patient denies travel to an Ebola-affected area in the 21 days before illness onset. No symptoms or risks identified at this time. Initial Sepsis Screen: Does the patient meet any 2 criteria? No. Patient's initial sepsis screen is negative. Does the patient have a suspected source of infection? No. Patient's initial sepsis screen is negative. Risk Assessment: Do you want to hurt yourself or someone else?. Onset of symptoms was September 09, 2022. 08:49 Method Of Arrival: Ambulatory iw 08:49 Acuity: CARLOS EDUARDO 3 iw Historical: - Allergies: 08:51 No Known Allergies; iw - Home Meds: 08:52 Lisinopril Oral [Active]; Allopurinol Oral [Active]; Hydrocodone-Acetaminophen Oral iw [Active]; - PMHx: 08:51 Hypertensive disorder; back pain; Gout; neuropathy; iw - Immunization history:: Client reports receiving the 2nd dose of the Covid vaccine. - Social history:: Smoking status: Patient reports use of chewing tobacco. Screenin:20 [facility] ED Fall Risk Assessment (Adult) History of falling in the last 3 months, ko1 including since admission No falls in past 3 months (0 pts) Confusion or Disorientation No (0 pts) Intoxicated or Sedated No (0 pts) Impaired Gait No (0 pts) Mobility Assist Device Used No (0 pt) Altered Elimination No (0 pt) Score/Fall Risk Level 0 - 2 = Low Risk Oriented to surroundings, Maintained a safe environment, Educated pt \T\ family on fall prevention, incl call for assistance when getting out of bed, Assessed \T\ reinforced patient's understanding of fall precautions, Provided non-skid footwear, Hourly rounding (assess needs \T\ fall precautionary measures) done, Used ambulatory aids as needed (educated on \T\ assisted with), Used gait belt as appropriate. Abuse screen: Denies threats or abuse. Denies injuries from another. Nutritional screening: No deficits noted. Tuberculosis screening: No symptoms or risk factors identified. Assessment: 09:20 General: Appears in no apparent distress. uncomfortable, Behavior is calm, cooperative, ko1 appropriate for age. Pain: Complains of pain in dorsal aspect of right forearm. Neuro: No deficits noted. Cardiovascular: No deficits noted. Respiratory: No deficits noted. GI: No deficits noted. : No deficits noted. EENT: No deficits noted. Derm: Abscess located on dorsal aspect of right forearm. Musculoskeletal: No deficits noted. Vital Signs: 08:49 BP 134 / 82; Pulse 95; Resp 18; Temp 97.6; Pulse Ox 100% on R/A; Weight 117.93 kg; iw Height 6 ft. 5 in. ; 11:00 BP 124 / 71; Pulse 87; Resp 18; Pulse Ox 99% ; ko1 08:49 Body Mass Index 30.83 (117.93 kg, 195.58 cm) iw ED Course: 08:40 Patient arrived in ED. am2 08:42 [facility]C [facility] kb 08:42 Terry Krishnan MD is Attending Physician. kb 08:51 Triage completed. iw 08:52 Arm band placed on. iw 09:20 Patient has correct armband on for positive identification. Placed in gown. Bed in low ko1 position. Call light in reach. Side rails up X 1. Client placed on continuous cardiac and pulse oximetry monitoring. NIBP monitoring applied. kit assembler on. Door closed. Noise minimized. Lights dimmed. Warm blanket given. 09:26 Rosemary Tapia, AYANNA is Primary Nurse. ko1 09:30 Inserted saline lock: 20 gauge in left antecubital area, using aseptic technique. Blood ko1 collected. 11:00 Assist provider with I \T\ D: of an abscess on right Set up I\T\D tray. Performed by abby 1 Bre MASON Dressing with 4X4s, tape Patient tolerated well. IV discontinued, intact, bleeding controlled, No redness/swelling at site. Pressure dressing applied. Administered Medications: 10:08 Drug: Piperacillin-Tazobactam IVPB 3.375 grams Route: IVPB; Infused Over: 60 mins; ld1 Site: left upper arm; 10:56 Drug: Lidocaine Infiltration (1 %) 1 vials Volume: 5 ml; Route: Infiltration; ko1 Medication: 11:00 VIS not applicable for this client. ko1 Outcome: 10:55 Discharge ordered by MD. tabares 11:09 Discharged to home ambulatory. ko1 11:09 Condition: stable 11:09 Discharge instructions given to patient, Instructed on discharge instructions, follow up and referral plans. medication usage, wound care, Demonstrated understanding of instructions, follow-up care, medications, wound care, Prescriptions given X 2. 11:10 Patient left the ED. ko1 Signatures: Bre Kovacs, MARLON HORSERADISH GRINDER-Ckb Elysia Ken, RN Sherice Biggs Lauren, RN RN ld1 Rosemary Tapia RN RN ko1
[2022-09-15 11:22] VITALS: TEMP 97.6
[2022-09-15 11:28] VITALS: BP 124/71; O2SAT 99
--- NOTE | 2022-09-16 05:51 | EKG ---
Test Date: 2022-09-15 Test Time: 09:16:45 [employer] Laborer: CHRISTIE MEASUREMENT RESULTS: Intervals: Rate: 93 HI: 136 QRSD: 102 QT: 358 QTc: 445 [place]: P: 52 HI: 136 QRS: 44 T: 52 INTERPRETIVE STATEMENTS: Normal sinus rhythm Normal ECG No previous ECG available for comparison Electronically Signed On 09-16-22 05:48:48 CDT by Jong Yusuf
--- NOTE | 2022-09-17 07:14 | EKG ---
Test Date: 2022-09-15 Test Time: 09:14:05 [place] Member: CHRISTIE MEASUREMENT RESULTS: Intervals: Rate: 94 WI: 144 QRSD: 88 QT: 356 QTc: 445 [place]: P: WI: 144 QRS: 4 T: 56 INTERPRETIVE STATEMENTS: Sinus rhythm with occasional premature ventricular complexes Junctional ST depression, probably normal Borderline ECG No previous ECG available for comparison Electronically Signed On 09-17-22 07:09:59 CDT by Jong Yusuf
== END 2022-09-15 11:10 | disposition home or self-care (01) ==
LOC: ER 08:35
PROC: 0H9DXZZ Drainage of Right Lower Arm Skin, External Approach (ICD-10-PCS; principal; 2022-09-15)
DX: L03.113 Cellulitis of right upper limb (principal); I10 Essential (primary) hypertension
CPT/HCPCS: 93005 ×2; 87040 ×2; 85025; 36415; 85610; 82947; 83605; 85730; 80053; 84145; 96374; 99285; 10060; J2001; J2543